=== PATIENT | female | born 2000 | race African-American/Black ===

== ENCOUNTER 2021-10-23 23:52 | Inpatient (IN) ==
[2021-10-24] MEDS ORDERED: OXYTOCIN/LR 20 UNIT/1,000 ML BAG IV PRN ×2 (00:06)
[2021-10-24] MEDS ORDERED: METHYLERGONOVINE 0.2 MG/1 ML AMP IM PRN (00:06)
[2021-10-24] MEDS ORDERED: miSOPROStoL 200 MCG TABLET RECTAL PRN (00:06)
[2021-10-24] MEDS ORDERED: BUTORPHANOL 2 MG/ML VIAL IV PRN (00:06)
[2021-10-24] MEDS ORDERED: CARBOPROST TROMETHAMINE 250 MCG/ML AMP IM PRN (00:06)
[2021-10-24] MEDS ORDERED: TRANEXAMIC ACID 1,000 MG in SODIUM CHLORIDE 0.9% 100 ML IV PRN (00:06)
[2021-10-24 00:48] LABS: Basophils % 0.2 % (0.0-0.8); Eosinophils % 0.4 % (0.00-10.9); Hemoglobin 9.5 GM/DL (12.0-16.0); Immature Granulocytes % 0.4 %; Immature Granulocytes Absolute 0.04 #; Lymphocytes # 2.6 10*3/uL (1.4-4.0); Lymphocytes % 27.1 % (21.3-54.2); Mean Corpuscular HGB Conc 31.7 GM/DL (32-36); Mean Corpuscular Volume 76.7 FL (87-102); Mean Platelet Volume 10.9 FL (9.6-12.0); Monocytes # 0.6 10*3/uL (0.11-0.8); Monocytes % 5.8 % (1.7-12.7); Neutrophils % 66.1 % (38.7-73.9); Platelet Count 226 T/CUMM (130-400); Red Blood Count 3.91 MC/CUMM (3.8-5.5); Red Cell Distribution Width 16.2 % (9.3-17.3); White Blood Count 9.7 T/CUMM (4-12)
[2021-10-24 01:15] LABS: Albumin 2.5 G/DL (3.4-5.0); Bilirubin,Total 0.4 MG/DL (0.20-1.00); Calcium 8.3 MG/DL (8.5-10.1); Osmolality,Calculated 275.7 MOS/KG (273-304); Potassium 3.6 MMOL/L (3.5-5.1); Total Protein 6.9 G/DL (6.4-8.2)
[2021-10-24 01:36] LABS: Bilirubin,Direct 0.13 MG/DL (0.0-0.20); Uric Acid 4.3 MG/DL (2.6-6.0)
[2021-10-24] MEDS: LACTATED RINGERS 1,000 ML IV SCH ×2 (06:17→14:21)
[2021-10-24] MEDS: ONDANSETRON 4 MG/2 ML VIAL IV PRN ×3 (07:20→22:02)
[2021-10-24] MEDS: MEPERIDINE 50 MG/1 ML VIAL IV PRN ×2 (07:21→15:31)
[2021-10-24 07:35] LABS: INR 0.9; PT Patient Result 9.9 SECS (10.5-12.0); Partial Thromboplastin Time 27.3 SECS (23.8-32.1)
[2021-10-24] MEDS ORDERED: LABETALOL 100 MG TABLET PO SCH (09:00)
[2021-10-24 09:54] LABS: Bilirubin,Urine Negative (Negative); Blood, Urine Negative (Negative); Glucose,Urine (UA) Negative (Negative); Ketones,Urine Negative (Negative); Mucus,Urine Many /LPF (Occasional); Nitrite,Urine Negative (Negative); Protein,Urine Negative (Negative); RBC,Urine 4 /HPF (0-4); Squamous Epithelial Cell,Urine Few /HPF (0-10); Urine Appearance Clear (Clear); Urine Color Yellow (Yellow); Urine Specific Gravity > 1.030 (1.001-1.035); Urine Urobilinogen 0.2 eU/dL (<2.0)
[2021-10-24 10:02] LABS: Protein/Creatinine Ratio,Urine 0.1 RATIO
[2021-10-24] MEDS ORDERED: OXYTOCIN/LR 20 UNIT/1,000 ML BAG IV SCH (14:30)
[2021-10-24] MEDS ORDERED: NIFEdipine 10 MG CAPSULE PO ONE ×2 (16:09→17:00)
[2021-10-24] MEDS ORDERED: CITRIC ACID/SODIUM CITRATE 30 ML UDCUP PO ONE ×2 (16:25→17:00)
[2021-10-24] MEDS ORDERED: FAMOTIDINE 20 MG/2 ML VIAL IV ONE ×2 (16:25→17:00)
[2021-10-24] MEDS ORDERED: BUPIVACAINE SPINAL 0.75% 2 ML AMP SPINAL ONE (16:40)
[2021-10-24] MEDS ORDERED: buprenorphine HCL 0.3 MG/ML VIAL ONE (16:40)
[2021-10-24] MEDS ORDERED: ONDANSETRON 4 MG/2 ML VIAL ONE (16:45)
[2021-10-24] MEDS ORDERED: DEXAMETHASONE 4 MG/1 ML VIAL ONE (16:47)
[2021-10-24] MEDS ORDERED: OXYTOCIN 10 UNIT/ML VIAL IM ONE (17:00)
[2021-10-24] MEDS ORDERED: OXYTOCIN/LR 30 UNIT/1,000 ML BAG IV ONE (17:00)
[2021-10-24] MEDS ORDERED: PHENYLEPHRINE 1 MG/10 ML SYRINGE IV ONE (17:11)
[2021-10-24] MEDS ORDERED: ACETAMINOPHEN INJ 1,000 MG/100 ML VIAL IV ONE (17:28)
[2021-10-24] MEDS ORDERED: KETOROLAC 30 MG/1 ML VIAL ONE (17:30)
[2021-10-24] MEDS ORDERED: FUROSEMIDE 20 MG/2 ML VIAL ONE (17:35)
[2021-10-24 17:38] LABS: Mucus,Urine Occasional /LPF (Occasional); RBC,Urine 1 /HPF (0-4); Squamous Epithelial Cell,Urine Occasional /HPF (0-10); Urine Appearance Clear (Clear); Urine Color Yellow (Yellow)
[2021-10-24 17:39] LABS: Bilirubin,Urine Negative (Negative); Blood, Urine Negative (Negative); Glucose,Urine (UA) Negative (Negative); Ketones,Urine Negative (Negative); Nitrite,Urine Negative (Negative); Protein,Urine Negative (Negative); Urine Urobilinogen 0.2 eU/dL (<2.0)
[2021-10-24 17:40] LABS: Cord Arterial Blood HCO3 15.6 MMOL/L
[2021-10-24 17:43] LABS: Cord Venous Blood HCO3 17.9 MMOL/L; Cord Venous Blood PCO2 70.5 MMHG; Cord Venous Blood PO2 < 17
[2021-10-24] MEDS ORDERED: IBUPROFEN 800 MG TABLET PO PRN (17:55)
[2021-10-24] MEDS ORDERED: ONDANSETRON 4 MG/2 ML VIAL IV PRN (17:55)
[2021-10-24] MEDS ORDERED: ACETAMINOPHEN 325 MG TABLET PO PRN (17:55)
[2021-10-24] MEDS ORDERED: LACTATED RINGERS 1,000 ML IV SCH (18:30)
[2021-10-24] MEDS ORDERED: OXYTOCIN/LR 20 UNIT/1,000 ML BAG IV ONE (18:30)
[2021-10-24] MEDS ORDERED: RHO(D) IMMUNE GLOBULIN 300 MCG SYRINGE IM ONE (18:30)
[2021-10-24] MEDS: DOCUSATE SODIUM 100 MG CAPSULE PO SCH (23:39)
[2021-10-24] MEDS ORDERED: FUROSEMIDE 40 MG/4 ML VIAL IV SCH (23:45)
[2021-10-24] MEDS: KETOROLAC 30 MG/1 ML VIAL IV SCH (23:57)
[2021-10-24] MEDS: ACETAMINOPHEN 500 MG TABLET PO SCH (23:58)
[2021-10-25] MEDS ORDERED: ACETAMINOPHEN 500 MG TABLET PO SCH
[2021-10-25] MEDS ORDERED: KETOROLAC 30 MG/1 ML VIAL IV SCH
[2021-10-25] MEDS ORDERED: FUROSEMIDE 40 MG/4 ML VIAL IV ONE ×2 (00:08→11:02)
[2021-10-25] MEDS: ceFAZolin 2,000 MG/50 ML DUPLEX IV SCH ×2 (01:35→09:01)
[2021-10-25] MEDS: ACETAMINOPHEN 500 MG TABLET PO SCH (05:42)
[2021-10-25] MEDS: KETOROLAC 30 MG/1 ML VIAL IV SCH ×2 (05:42→15:00)
[2021-10-25 06:55] LABS: Basophils % 0.2 % (0.0-0.8); Hematocrit 32.1 VOL% (35.7-47.0); Hemoglobin 10.1 GM/DL (12.0-16.0); Immature Granulocytes % 0.6 %; Immature Granulocytes Absolute 0.11 #; Lymphocytes % 11.1 % (21.3-54.2); Mean Corpuscular HGB Conc 31.5 GM/DL (32-36); Mean Corpuscular Volume 75.9 FL (87-102); Mean Platelet Volume 11.6 FL (9.6-12.0); Monocytes % 5.5 % (1.7-12.7); Neutrophils % 82.6 % (38.7-73.9); Platelet Count 272 T/CUMM (130-400); Red Blood Count 4.23 MC/CUMM (3.8-5.5); Red Cell Distribution Width 15.9 % (9.3-17.3); White Blood Count 18.1 T/CUMM (4-12)
[2021-10-25] MEDS: MULTIVITAMIN (PRENATAL) TABLET PO SCH (08:59)
[2021-10-25] MEDS: METOCLOPRAMIDE 10 MG TABLET PO SCH ×2 (08:59→21:53)
[2021-10-25] MEDS: DOCUSATE SODIUM 100 MG CAPSULE PO SCH ×2 (09:00→20:56)
[2021-10-25] MEDS ORDERED: KETOROLAC 30 MG/1 ML VIAL IV ONE (15:07)
[2021-10-25] MEDS: SIMETHICONE CHEW 80 MG TABLET PO PRN (20:56)
[2021-10-25] MEDS: MAGNESIUM HYDROXIDE SUSP 30 ML UDCUP PO PRN (20:56)
[2021-10-25] MEDS ORDERED: BISACODYL 10 MG SUPP RECTAL PRN (22:31)
[2021-10-26] MEDS: METOCLOPRAMIDE 10 MG TABLET PO SCH ×2 (00:20→09:40)
[2021-10-26] MEDS ORDERED: MAGNESIUM CITRATE 300 ML BOTTLE PO ONE ×2 (04:06→11:14)
[2021-10-26] MEDS: SIMETHICONE CHEW 80 MG TABLET PO PRN ×2 (04:08→09:40)
[2021-10-26] MEDS: DOCUSATE SODIUM 100 MG CAPSULE PO SCH (09:40)
[2021-10-26] MEDS: MULTIVITAMIN (PRENATAL) TABLET PO SCH (09:40)
[2021-10-26] MEDS: MAGNESIUM HYDROXIDE SUSP 30 ML UDCUP PO PRN (09:40)
[2021-10-26 14:26] VITALS: BP 128/74
== END 2021-10-26 17:00 | disposition home or self-care (01) | DRG 788 ==
LOC: N.LD 23:52 → N.OB 10-24 22:30
PROVIDERS: ADMIT Obstetrics & Gynecology; ATTEND Obstetrics & Gynecology
PROC: LDCSECT (ICD-10-PCS; 2021-10-24 17:00)